=== PATIENT | female | born 1980 | race Caucasian/White ===

== ENCOUNTER 2018-01-25 21:25 | Emergency (ER) | payer MEDICARE, MEDICAID ==
[~2018-01-25] VITALS: Ht 154.9 cm; Wt 70.3 kg
[~2018-01-25 21:25] MED LIST: COMBIVENT INH; PREDNISONE 20 M20 M1 PO; VENTOLIN HFA 1818 GM INH; ZPAK PO
[2018-01-25] MEDS ORDERED: ABILIFY 5 MG TAB5 MG PO (21:38)
[2018-01-25 22:03] LABS: URINE BILIRUBIN NEGATIVE (Negative); URINE BLOOD NEGATIVE (Negative); URINE CLARITY CLEAR; URINE COLOR YELLOW; URINE GLUCOSE-RANDOM NEGATIVE (Negative); URINE KETONES NEGATIVE (Negative); URINE LEUKOCYTES-REFLEX NEGATIVE (Negative); URINE NITRITE-REFLEX NEGATIVE (Negative); URINE PROTEIN NEGATIVE (Negative); URINE UROBILINOGEN 0.2 E.U./dl (0.2-1.0)
[2018-01-25] MEDS ORDERED: KEFLEX500 M1 PO (22:11)
[2018-01-25] MEDS ORDERED: HYDROCODONE-ACE15 ML PO (22:11)
[2018-01-25] MEDS ORDERED: PROAIR HFA8.5 GM INH (22:34)
[2018-01-25 23:05] VITALS: BP 111/75
== END 2018-01-25 23:05 | disposition home or self-care (01) ==
LOC: M.ERS 21:25
PROVIDERS: Emergency Medicine
DX: J02.0 Streptococcal pharyngitis (principal); J45.909 Unspecified asthma, uncomplicated; F32.9 Major depressive disorder, single episode, unspecified; F17.200 Nicotine dependence, unspecified, uncomplicated; Z88.0 Allergy status to penicillin

== ENCOUNTER 2018-01-27 09:19 | Emergency (ER) | payer MEDICARE ==
[~2018-01-27] VITALS: Ht 154.9 cm; Wt 70.3 kg
[~2018-01-27 09:19] MED LIST changes: +ABILIFY 5 MG TAB5 MG PO; +HYDROCODONE-ACE15 ML PO; +KEFLEX500 M1 PO; +PROAIR HFA8.5 GM INH
[2018-01-27 10:30] VITALS: BP 129/90
== END 2018-01-27 10:31 | disposition home or self-care (01) ==
LOC: M.ERS 09:19
DX: J02.0 Streptococcal pharyngitis (principal); J45.909 Unspecified asthma, uncomplicated; F32.9 Major depressive disorder, single episode, unspecified; Z88.0 Allergy status to penicillin

== ENCOUNTER 2018-11-14 09:09 | Emergency (ER) | payer OTHER ==
[~2018-11-14] VITALS: Ht 154.9 cm; Wt 81.7 kg
[2018-11-14] MEDS ORDERED: ZOLOFT25 MG PO (09:17)
[2018-11-14] MEDS ORDERED: VENTOLIN HFA 1818 GM INH (09:57)
[2018-11-14] MEDS ORDERED: TESSALON PERLE100 MG PO (09:57)
[2018-11-14] MEDS ORDERED: PREDNISONE 20 M20 M1 PO (09:57)
[2018-11-14] MEDS ORDERED: ZPAK PO (09:57)
[2018-11-14] MEDS ORDERED: NORCO 5-325 TA1 EACH PO (10:04)
[2018-11-14 10:09] VITALS: BP 132/77
[2018-11-14] MEDS ORDERED: ALBUTEROL2.5 MG/31 INH (11:30)
== END 2018-11-14 10:10 | disposition home or self-care (01) ==
LOC: M.ERS 09:09
DX: J45.909 Unspecified asthma, uncomplicated (principal); F32.9 Major depressive disorder, single episode, unspecified; Z88.0 Allergy status to penicillin